=== PATIENT | female | born 2005 | race Caucasian/White ===

== ENCOUNTER 2023-01-27 13:37 | Inpatient (IN) | payer OTHER ==
[~2023-01-27] VITALS: Ht 165.1 cm; Wt 49.2 kg
[2023-01-27] MEDS ORDERED: ARIP1TAB PO (13:51)
[2023-01-27 15:32] LABS: HEMATOCRIT 41.6 % (36.0-47.0); HEMOGLOBIN 14.1 g/dl (12.0-15.5); MEAN CORPUSCULAR HEMOGLOBIN 31.3 pg (27.0-33.0); MEAN CORPUSCULAR HGB CONC 33.9 g/dl (32.0-36.5); MEAN CORPUSCULAR VOLUME 92.2 fl (80.0-96.0); PLATELET COUNT, AUTOMATED 228 10^3/uL (150-450); RED BLOOD COUNT 4.51 10^6/uL (4.00-5.40); WHITE BLOOD COUNT 6.8 10^3/uL (4.0-10.0)
[2023-01-27 16:01] LABS: ETHYL ALCOHOL (ETHANOL) 0.007 % (0.000-0.010)
[2023-01-27 16:02] LABS: SALICYLATE LEVEL < 3.0 MG/DL (<30)
[2023-01-27 16:03] LABS: ALBUMIN 4.4 G/DL (3.2-5.2); ALKALINE PHOSPHATASE 37 U/L (46-116); ALT/SGPT 23 U/L (7.0-40); AST/SGOT 23 U/L (<34); BILIRUBIN,DIRECT 0.2 MG/DL (<0.4); BILIRUBIN,TOTAL 0.6 MG/DL (0.3-1.2); BLOOD UREA NITROGEN 13 MG/DL (9-23); CALCIUM LEVEL 9.4 MG/DL (8.5-10.1); CARBON DIOXIDE LEVEL 24 MMOL/L (20-31); CHLORIDE LEVEL 103 MMOL/L (98-107); CREATININE FOR GFR 0.76 MG/DL (0.55-1.30); GLUCOSE, FASTING 94 MG/DL (60-100); SODIUM LEVEL 138 MMOL/L (136-145); TOTAL PROTEIN 7.3 G/DL (5.7-8.2)
[2023-01-27 16:14] LABS: HCG, SERUM QUALITATIVE NEGATIVE (NEGATIVE)
[2023-01-27] MEDS ORDERED: MOM 30ML SUSPENSION UDC PO PRN (18:25)
[2023-01-27] MEDS ORDERED: traZODone 50 MG TAB PO PRN (18:25)
[2023-01-27] MEDS ORDERED: ACETAMINOPHEN TAB 650MG DOSE (2X325MG) PO PRN (18:25)
[2023-01-27] MEDS ORDERED: IBUPROFEN 400MG TAB PO PRN (18:25)
[2023-01-27] MEDS ORDERED: MAALOX 30 ML SUSP *UDC PO PRN (18:25)
[2023-01-27] MEDS ORDERED: diphenhydrAMINE 25MG CAP PO PRN (18:25)
[2023-01-27] MEDS ORDERED: ARIP1TAB4 PO (18:40)
[2023-01-27] MEDS ORDERED: HOME MED LIST COMPLETE! XX SCH (18:40)
[2023-01-27 22:13] LABS: AMPHETAMINES LEVEL URINE NEGATIVE (NEGATIVE)
[2023-01-27 22:14] LABS: BARBITURATES URINE NEGATIVE (NEGATIVE); BENZODIAZEPINES URINE NEGATIVE (NEGATIVE); COCAINE METABOLITE URINE NEGATIVE (NEGATIVE); METHADONE URINE NEGATIVE (NEGATIVE); OPIATES URINE NEGATIVE (NEGATIVE); PHENCYCLIDINE URINE NEGATIVE (NEGATIVE)
[2023-01-27 22:16] LABS: CANNABINOIDS URINE POSITIVE (NEGATIVE)
[2023-01-27 23:35] VITALS: BP 135/82; TEMP 98.4; O2SAT 100
[2023-01-28] MEDS: ARIPiprazole 10 MG TAB PO SCH (08:32)
[2023-01-28 16:20] VITALS: BP 144/79; TEMP 97.5; O2SAT 99
[2023-01-28] MEDS ORDERED: INFLUENZA QUADRIVALENT PF VACCINE 0.5ML SYRINGE IM.IMMUN ONE (17:00)
[2023-01-29 06:20] VITALS: BP 128/73; TEMP 97.7; O2SAT 100
[2023-01-29] MEDS: ARIPiprazole 10 MG TAB PO SCH (08:34)
[2023-01-29 15:48] VITALS: BP 130/77; TEMP 98.2; O2SAT 100
[2023-01-30 06:03] VITALS: BP 120/71; TEMP 98.4; O2SAT 99
[2023-01-30] MEDS: ARIPiprazole 10 MG TAB PO SCH (08:52)
[2023-01-30 18:32] VITALS: BP 125/69; TEMP 99.3
[2023-01-31 06:08] VITALS: BP 119/77; TEMP 98; O2SAT 100
[2023-01-31] MEDS: ARIPiprazole 10 MG TAB PO SCH (08:11)
[2023-01-31 18:00] VITALS: BP 131/75; TEMP 97.6
[2023-02-01 06:45] VITALS: BP 101/67; TEMP 98.6; O2SAT 98
[2023-02-01] MEDS: ARIPiprazole 10 MG TAB PO SCH (08:26)
[2023-02-01] MEDS ORDERED: ABIL10TA9 PO (10:08)
== END 2023-02-01 13:11 | disposition home or self-care (01) | DRG 753 ==
LOC: M ED 13:37 → M ED INP 18:25 → M PSY 22:39
PROVIDERS: ADMIT Psychiatry & Neurology Psychiatry; ATTEND Psychiatry & Neurology Psychiatry
DX: F31.81 Bipolar II disorder (principal); R45.851 Suicidal ideations; F12.10 Cannabis abuse, uncomplicated; F60.3 Borderline personality disorder; Z91.52 Personal history of nonsuicidal self-harm; Z62.810 Personal history of physical and sexual abuse in childhood; Z81.1 Family history of alcohol abuse and dependence; Z81.8 Family history of other mental and behavioral disorders; Z79.899 Other long term (current) drug therapy; Z20.822 Contact with and (suspected) exposure to COVID-19